=== PATIENT | male | born 2000 | race Caucasian/White ===

== ENCOUNTER 2018-08-03 09:58 | Emergency (ER) | payer OTHER ==
[2018-08-03 10:24] VITALS: BP 161/90
--- NOTE | 2018-08-03 10:40 | UC ---
General HPI - HPI Summary HPI Summary: states he woke up in the middle of the night with low back pain, nausea and blood in the urine. He tried sleeping again but pain woke him up and he took about 1800mg of ibuprofen an hour ago, pain is 7-8/10. States he has history of HTN but is not taking any medications for it. Denies history of kidney stones in the past. Denies vomiting chills fever dysuria or diarrhea. - History of Current Complaint Chief Complaint: UCGU Stated Complaint: LOWER BACK PAIN Time Seen by Provider: 08/03/18 10:33 Hx Obtained From: Patient Onset/Duration: Sudden Onset, Lasting Hours Onset Severity: Moderate Current Severity: Severe Pain Intensity: 7 - Allergy/Home Medications Allergies/Adverse Reactions: Allergies Allergy/AdvReac Type Severity Reaction Status Date / Time No Known Allergies Allergy Verified 08/03/18 10:21 Home Medications: Home Medications Ibuprofen [Advil] 600 mg PO DAILY 08/03/18 [History Confirmed 08/03/18] PMH/Surg Hx/FS Hx/Imm Hx Previously Healthy: Yes Cardiovascular History: Hypertension - Surgical History Surgical History: None - Family History Known Family History: Positive: Hypertension - Social History Alcohol Use: Weekly Substance Use Type: Marijuana Substance Use Comment - Amount & Last Used: OCCASSIONALLY Smoking Status (MU): Current Some Day Smoker Household Exposure Type: Cigarettes Review of Systems Constitutional: Negative Genitourinary: Other - blood in urine Musculoskeletal: Myalgia All Other Systems Reviewed And Are Negative: Yes Physical Exam Triage Information Reviewed: Yes Appearance: Well-Appearing, No Pain Distress, Well-Nourished Vital Signs: Initial Vital Signs Temp 98.7 F 08/03/18 10:17 Pulse 67 08/03/18 10:17 Resp 15 08/03/18 10:17 BP 161/90 08/03/18 10:17 Pulse Ox 96 08/03/18 10:17 Vital Signs Reviewed: Yes Eyes: Positive: Conjunctiva Clear ENT: Positive: Normal ENT inspection, Hearing grossly normal, Pharynx normal Neck: Positive: Supple, Nontender, No Lymphadenopathy Respiratory: Positive: Chest non-tender, Lungs clear, Normal breath sounds, No respiratory distress Cardiovascular: Positive: RRR, No Murmur, Pulses Normal, Brisk Capillary Refill Abdomen Description: Positive: Nontender, No Organomegaly, Soft, CVA Tenderness (L) Musculoskeletal: Positive: Strength Intact, ROM Intact, No Edema Course/Dx - Course Course Of Treatment: Patient had presence of blood and protein in urinanalysis and CT of abdomen/pelvis revealed two stones, one 7mm on superior pole of left kidney collective system and another 4mm left ureter. Patient has good control of pain after intake of ibuprofen, instructed to go for aggressive oral hydration and f/u with urology within a week. Case discussed with Dr. Barakat. Patient to follow up with primary care for control of HTN - Differential Dx - Multi-Symptom Provider Diagnoses: urolithiasis. HTN Discharge - Sign-Out/Discharge Documenting (check all that apply): Patient Departure All imaging exams completed and their final reports reviewed: Yes - Discharge Plan Condition: Stable Disposition: HOME Patient Education Materials: Kidney Stones (ED), Ibuprofen (By mouth) Referrals: No Primary Care Phys,NOPCP [Primary Care Provider] - [facility] [Outside] Hari Barakat MD [Medical Doctor] - - Billing Disposition and Condition Condition: STABLE Disposition: Home
--- NOTE | 2018-08-03 11:21 | RAD ---
CLINICAL HISTORY: Hematuria and low back pain COMPARISON: None TECHNIQUE: Noncontrast CT examination of the abdomen and pelvis from the lung bases through the initial tuberosities. FINDINGS: VISUALIZED LUNG BASES: The visualized lung bases are grossly clear. There is no pleural effusion. ABDOMEN AND PELVIS: Evaluation of the solid organs and vasculature is limited without intravenous contrast. The liver, spleen, pancreas and adrenal glands are grossly normal in appearance. The gallbladder is normal. The right kidney is normal in appearance without focal mass, calcification or signs of hydronephrosis. There is a [id number] degree of hydronephrosis in the left kidney. At the upper pole collecting system there is a 7 mm calcification (coronal image 66). At approximately the mid-level left ureter there is a 4 mm calcification (axial image 108 and coronal image 53). More distally there are no ureteral calcifications or calcification in the urinary bladder. The small and large bowel are not distended.The patient's normal appendix is identified in the right lower quadrant. There is no gross retroperitoneal or mesenteric lymphadenopathy. The pelvic viscera is normal in appearance. The abdominal aorta and iliac arteries are normal in course and diameter. There are no sinister bone lesions. IMPRESSION: At the mid-level left ureter there is a 4 mm calcification with ipsilateral mild to moderate hydronephrosis. Also noted is a 7 mm calcification in the upper pole collecting system of the left kidney.
== END 2018-08-03 12:11 | disposition home or self-care (01) ==
LOC: UCCORT 09:58
DX: N20.9 Urinary calculus, unspecified (principal); I10 Essential (primary) hypertension; F17.210 Nicotine dependence, cigarettes, uncomplicated
CPT/HCPCS: 74176; 81003; 87086; 99202; G0463